=== PATIENT | male | born 1960 | race Caucasian/White ===

== ENCOUNTER 2019-10-23 21:21 | Emergency (ER) | payer BC ==
[2019-10-23] MEDS ORDERED: Nitroglycerin 0.4 MG Tab.SL SL PRN (21:31)
[2019-10-23] MEDS ORDERED: Sodium Chloride 0.9% 10 ML Syringe FLUSH PRN (21:31)
[2019-10-23] MEDS ORDERED: Aspirin 81 MG Tab.Chew PO ONE (21:31)
[2019-10-23] MEDS ORDERED: Morphine 4 MG/ML Syringe IVPUSH PRN (21:31)
--- NOTE | 2019-10-23 21:35 | EDM.PDOC ---
ED HPI GENERAL MEDICAL PROBLEM - General Chief Complaint: Chest Pain Stated Complaint: CHEST PAIN,SOB,HB Time Seen by Provider: 10/23/19 21:31 Source of Information: Reports: Patient, RN Notes Reviewed History Limitations: Reports: No Limitations - History of Present Illness INITIAL COMMENTS - FREE TEXT/NARRATIVE: 58-year-old gentleman presents emergency department a complaint of chest pain, he states the chest pain started 2 hours prior he has no cardiac history no tobacco use does have a history of hypertension as well as gastric bypass. He describes the chest pain he is constant rates it 3-4 out of 10 had felt short of breath that has improved was diaphoretic also improved Chest Pain Score (Numeric/FACES): 3 - Related Data Allergies Allergy/AdvReac Type Severity Reaction Status Date / Time No Known Allergies Allergy Verified 11/11/14 22:17 Home Meds: Home Meds Simvastatin [Zocor] 20 mg PO BEDTIME 11/11/14 [History] traZODone 100 mg PO BEDTIME 11/11/14 [History] Losartan Potassium 1 tab PO DAILY 10/23/19 [History] carvediloL [Carvedilol] 1 tab PO BID 10/23/19 [History] metFORMIN HCl [Metformin HCl ER] 1 tab PO BID 10/23/19 [History] Past Medical History Cardiovascular History: Reports: Hypertension Other Respiratory History: cpap Other Hematologic History: IGA deficient Social & Family History - Tobacco Use Smoking Status *Q: Never Smoker - Caffeine Use Caffeine Use: Reports: Coffee - Recreational Drug Use Recreational Drug Use: No ED ROS GENERAL - Review of Systems Review Of Systems: See Below Constitutional: Reports: No Symptoms HEENT: Reports: No Symptoms Respiratory: Reports: Shortness of Breath Cardiovascular: Reports: Chest Pain GI/Abdominal: Reports: No Symptoms : Reports: No Symptoms ED EXAM, GENERAL - Physical Exam Exam: See Below Exam Limited By: No Limitations General Appearance: Alert, WD/WN, No Apparent Distress Respiratory/Chest: No Respiratory Distress, Lungs Clear, Normal Breath Sounds, No Accessory Muscle Use, Chest Non-Tender Cardiovascular: Regular Rate, Rhythm, No Murmur GI/Abdominal: Soft, Non-Tender Extremities: Normal Inspection, No Pedal Edema Course - Vital Signs Last Recorded V/S: Last Vital Signs Temp 97.5 F 10/23/19 21:31 Pulse 77 10/23/19 22:36 Resp 15 10/23/19 22:36 BP 130/76 10/23/19 22:36 Pulse Ox 96 10/23/19 22:36 - Orders/Labs/Meds Orders: Active Orders 24 hr Category Date Time Status Cardiac Monitoring [RC] .As Directed Care 10/23/19 21:31 Active EKG Documentation Completion [RC] ASDIRECTED Care 10/23/19 21:32 Active Peripheral IV Care [RC] . DIRECTED Care 10/23/19 21:32 Active Chest 1V Frontal [CR] Stat Exams 10/23/19 21:32 Taken Morphine Med 10/23/19 21:31 Active 4 mg IVPUSH Q10M PRN Nitroglycerin [Nitrostat] Med 10/23/19 21:31 Active 0.4 mg SL Q5M PRN Sodium Chloride 0.9% [Saline Flush] Med 10/23/19 21:31 Active 10 ml FLUSH ASDIRECTED PRN Peripheral IV Insertion Adult [OM.PC] Stat Oth 10/23/19 21:31 Ordered Saline Lock Insert [OM.PC] Stat Oth 10/23/19 21:31 Ordered EKG 12 Lead [EK] Stat Ther 10/23/19 21:32 Ordered Medication Orders Morphine Sulfate (Morphine) 4 mg IVPUSH Q10M PRN PRN Reason: Chest Pain Stop: 10/24/19 21:31 Nitroglycerin (Nitrostat) 0.4 mg SL Q5M PRN PRN Reason: Chest Pain Stop: 10/24/19 21:32 Last Admin: 10/23/19 21:43 Dose: 0.4 mg Sodium Chloride (Saline Flush) 10 ml FLUSH ASDIRECTED PRN PRN Reason: Keep Vein Open Labs: Laboratory Tests 10/23/19 10/23/19 10/23/19 Range/Units 21:30 21:30 23:28 WBC 8.4 (4.5-11.0) K/uL RBC 4.96 (4.30-5.90) M/uL Hgb 14.8 (12.0-15.0) g/dL Hct 44.1 (40.0-54.0) % MCV 89 (80-98) fL MCH 30 (27-31) pg MCHC 34 (32-36) % Plt Count 331 (150-400) K/uL Neut % (Auto) 51 (36-66) % Lymph % (Auto) 34 (24-44) % [place] % (Auto) 12 H (2-6) % Eos % (Auto) 3 (2-4) % Baso % (Auto) 1 (0-1) % Sodium 138 L (140-148) mmol/L Potassium 4.2 (3.6-5.2) mmol/L Chloride 102 (100-108) mmol/L Carbon Dioxide 27 (21-32) mmol/L Anion Gap 13.2 (5.0-14.0) mmol/L BUN 11 (7-18) mg/dL Creatinine 0.8 (0.8-1.3) mg/dL Est Cr Clr Drug Dosing 97.80 mL/min Estimated GFR (MDRD) > 60 (>60) Glucose 151 H (74-106) mg/dL Calcium 8.8 (8.5-10.1) mg/dL Total Bilirubin 0.4 (0.2-1.0) mg/dL AST 47 H (15-37) U/L ALT 67 (12-78) U/L Alkaline Phosphatase 65 (46-116) U/L Troponin I < 0.017 < 0.017 (0.000-0.056) ng/mL Total Protein 7.4 (6.4-8.2) g/dL Albumin 3.9 (3.4-5.0) g/dL Globulin 3.5 (2.3-3.5) g/dL Albumin/Globulin Ratio 1.1 L (1.2-2.2) Meds: Medications Generic Name Dose Route Start Last Admin Trade Name Freq PRN Reason Stop Dose Admin Morphine Sulfate 4 mg 10/23/19 21:31 Morphine IVPUSH 10/24/19 21:31 Q10M PRN Chest Pain Nitroglycerin 0.4 mg 10/23/19 21:31 10/23/19 21:43 Nitrostat SL 10/24/19 21:32 0.4 mg Q5M PRN Administration Chest Pain Sodium Chloride 10 ml 10/23/19 21:31 Saline Flush FLUSH ASDIRECTED PRN Keep Vein Open Discontinued Medications Generic Name Dose Route Start Last Admin Trade Name Freq PRN Reason Stop Dose Admin Aspirin 324 mg 10/23/19 21:31 10/23/19 21:43 Aspirin PO 10/23/19 21:32 324 mg ONETIME ONE Administration Departure - Departure Time of Disposition: 00:26 Disposition: Home, Self-Care 01 Condition: Fair Clinical Impression: Atypical chest pain Instructions: Nonspecific Chest Pain, Adult Referrals: PCP,None [Primary Care Provider] - Forms: ED Department Discharge Additional Instructions: Please follow-up with your primary care within the next 3 to 5 days for further evaluation discussed the possibility of a stress test call return to the emergency department worsening of symptoms Sepsis Event Note - Focused Exam Vital Signs: Vital Signs Temp Pulse Resp BP BP Pulse Ox 10/23/19 22:36 77 15 130/76 96 10/23/19 22:08 78 22 H 137/84 94 L 10/23/19 21:52 91 15 141/86 H 95 10/23/19 21:43 188/84 H 10/23/19 21:31 97.5 F 82 10 L 188/84 H 96 10/23/19 21:21 97.5 F 82 10 L 188/84 H 96 Date Exam was Performed: 10/24/19 Time Exam was Performed: 00:25 - My Orders Last 24 Hours: My Active Orders 10/23/19 21:31 Cardiac Monitoring [RC] .As Directed Morphine 4 mg IVPUSH Q10M PRN Nitroglycerin [Nitrostat] 0.4 mg SL Q5M PRN Sodium Chloride 0.9% [Saline Flush] 10 ml FLUSH ASDIRECTED PRN Peripheral IV Insertion Adult [OM.PC] Stat Saline Lock Insert [OM.PC] Stat 10/23/19 21:32 EKG Documentation Completion [RC] ASDIRECTED Peripheral IV Care [RC] . DIRECTED Chest 1V Frontal [CR] Stat EKG 12 Lead [EK] Stat - Assessment/Plan Last 24 Hours: My Active Orders 10/23/19 21:31 Cardiac Monitoring [RC] .As Directed Morphine 4 mg IVPUSH Q10M PRN Nitroglycerin [Nitrostat] 0.4 mg SL Q5M PRN Sodium Chloride 0.9% [Saline Flush] 10 ml FLUSH ASDIRECTED PRN Peripheral IV Insertion Adult [OM.PC] Stat Saline Lock Insert [OM.PC] Stat 10/23/19 21:32 EKG Documentation Completion [RC] ASDIRECTED Peripheral IV Care [RC] . DIRECTED Chest 1V Frontal [CR] Stat EKG 12 Lead [EK] Stat Plan: Assessment Acuity = acute Site and laterality = atypical chest pain Etiology = unknown Manifestations = none Location of injury = Home Lab values = CBC, CMP unremarkable troponin was negative x2 chest x-ray does show an opacity in the left lower lobe consistent with a granuloma he has heard of this before no old films are available here Plan I did review lab work chest x-ray with him he is going to follow-up with his primary care within the next week and talk about a stress test This note was dictated using [employer] voice recognition software please call with any questions on syntax or grammar.
[2019-10-23 22:37] VITALS: PULSE 77
[2019-10-24 00:26] VITALS: BP 144/85
--- NOTE | 2019-10-24 09:39 | CR ---
CHEST: Portable 10/23/2019 CLINICAL HISTORY:Chest pain COMPARISON:None FINDINGS: Heart size is upper limits of normal. Pulmonary vascularity is normal. There are 2 small nodular densities in the right mid and lower lung. There are well demarcated. The larger in the perihilar region measures 6 mm in maximum dimension. This is likely granulomatous but endocrinology cannot be ascertained without prior images. No infiltrates are seen. There are no pleural effusions Impression: No acute cardiopulmonary process Mid and lower right lung nodules are likely benign but comparison with prior studies is recommended. If there are no prior studies available short-term follow-up chest x-ray in 4-[address] should be considered.
== END 2019-10-24 00:42 | disposition home or self-care (01) ==
LOC: JP.ED 21:21
DX: R07.89 Other chest pain (principal); I10 Essential (primary) hypertension; Z79.899 Other long term (current) drug therapy; Z79.84 Long term (current) use of oral hypoglycemic drugs
CPT/HCPCS: 36415; 71045; 80053; 84484; 85025; 93005; 99285; A9270

== ENCOUNTER 2020-09-28 18:06 | Emergency (ER) | payer BC ==
--- NOTE | 2020-09-28 18:49 | EDM.PDOC ---
ED HPI GENERAL MEDICAL PROBLEM - General Chief Complaint: General Stated Complaint: DIZZY, HEADACH Time Seen by Provider: 09/28/20 18:47 Source of Information: Reports: Patient History Limitations: Reports: No Limitations - History of Present Illness INITIAL COMMENTS - FREE TEXT/NARRATIVE: pt has been having headaches , lite headed and a near syncopal episode. He has taken his meds as usual. Onset: Today Duration: Hour(s): Location: Reports: Head, Generalized Associated Symptoms: Reports: Headaches, Syncope, Other (pt has a near syncopal episode. ) headache Pain Score (Numeric/FACES): 5 - Related Data Allergies Allergy/AdvReac Type Severity Reaction Status Date / Time No Known Allergies Allergy Verified 09/30/20 10:35 Home Meds: Home Meds Simvastatin [Zocor] 20 mg PO BEDTIME 11/11/14 [History] traZODone 100 mg PO BEDTIME 11/11/14 [History] Losartan Potassium 50 mg PO DAILY 10/23/19 [History] carvediloL [Carvedilol] 1 tab PO BID 10/23/19 [History] metFORMIN HCl [Metformin HCl ER] 1 tab PO BID 10/23/19 [History] ClonazePAM [KlonoPIN] 0.5 mg PO BID PRN 09/30/20 [History] FLUoxetine HCl [Fluoxetine] 20 mg PO DAILY 09/30/20 [History] Fenofibrate,Micronized [Fenofibrate] 200 mg PO DAILY 09/30/20 [History] Losartan Potassium [Cozaar] 50 mg PO 1600 09/30/20 [History] Past Medical History HEENT History: Reports: Impaired Vision Cardiovascular History: Reports: High Cholesterol, Hypertension Respiratory History: Reports: Sleep Apnea Other Respiratory History: cpap Gastrointestinal History: Reports: GERD Psychiatric History: Reports: Anxiety, Depression Endocrine/Metabolic History: Reports: Diabetes, Type II Other Hematologic History: IGA deficient - Infectious Disease History Infectious Disease History: Reports: Measles - Past Surgical History HEENT Surgical History: Reports: Other (See Below) Other HEENT Surgeries/Procedures: vocal polyp removed 2002 GI Surgical History: Reports: Bariatric Procedure, Colonoscopy, Hernia, Inguinal Musculoskeletal Surgical History: Reports: Arthroscopic Knee, Knee Replacement Social & Family History - Family History Family Medical History: No Pertinent Family History - Tobacco Use Tobacco Use Status *Q: Never Tobacco User Second Hand Smoke Exposure: No - Caffeine Use Caffeine Use: Reports: Coffee - Alcohol Use Days Per Week of Alcohol Use: 2 Number of Drinks Per Day: 3 Total Drinks Per Week: 6 - Recreational Drug Use Recreational Drug Use: No ED ROS GENERAL - Review of Systems Review Of Systems: See Below Constitutional: Reports: Other ( dizziness. ) HEENT: Reports: No Symptoms Respiratory: Reports: No Symptoms Cardiovascular: Reports: Syncope, Other (pt had a near syncopal episode) Endocrine: Reports: No Symptoms GI/Abdominal: Reports: No Symptoms : Reports: No Symptoms Musculoskeletal: Reports: No Symptoms Skin: Reports: No Symptoms Neurological: Reports: Dizziness, Syncope, Other (ppt hada near syncopal episode. ) Psychiatric: Reports: Anxiety ED EXAM, GENERAL - Physical Exam Exam: See Below Exam Limited By: No Limitations General Appearance: Alert, No Apparent Distress, Anxious, Other (pupils are equal and reactive. He is having a headache and he did hae a near syncopal episode. ) Ears: Normal TMs Nose: Normal Inspection Throat/Mouth: Normal Inspection Head: Atraumatic Neck: Normal Inspection Respiratory/Chest: No Respiratory Distress Cardiovascular: Regular Rate, Rhythm GI/Abdominal: Soft, Non-Tender (Male) Exam: Deferred Rectal (Males) Exam: Deferred Back Exam: Normal Inspection Extremities: Normal Inspection Neurological: Alert, Oriented, Normal Cognition Psychiatric: Anxious Course - Vital Signs Last Recorded V/S: Last Vital Signs Temp 36.8 C 09/28/20 18:33 Pulse 72 09/28/20 21:29 Resp 16 09/28/20 21:10 BP 175/96 H 09/28/20 21:37 Pulse Ox 96 09/28/20 21:10 Orthostatic Blood Pressure [ 183/90 Standing] Orthostatic Blood Pressure [ 179/100 Sitting] Orthostatic Blood Pressure [ 171/93 Supine] - Orders/Labs/Meds Labs: Laboratory Tests 09/28/20 09/28/20 09/28/20 Range/Units 18:50 18:50 19:26 WBC 7.5 (4.5-11.0) K/uL RBC 4.73 (4.30-5.90) M/uL Hgb 14.0 (12.0-15.0) g/dL Hct 42.8 (40.0-54.0) % MCV 91 (80-98) fL MCH 30 (27-31) pg MCHC 33 (32-36) % Plt Count 328 (150-400) K/uL Neut % (Auto) 62 (36-66) % Lymph % (Auto) 24 (24-44) % [place] % (Auto) 11 H (2-6) % Eos % (Auto) 2 (2-4) % Baso % (Auto) 1 (0-1) % Sodium 140 (140-148) mmol/L Potassium 4.0 (3.6-5.2) mmol/L Chloride 100 (100-108) mmol/L Carbon Dioxide 26 (21-32) mmol/L Anion Gap 14.0 (5.0-14.0) mmol/L BUN 14 (7-18) mg/dL Creatinine 0.9 (0.8-1.3) mg/dL Est Cr Clr Drug Dosing 87.28 mL/min Estimated GFR (MDRD) > 60 (>60) Glucose 144 H (74-106) mg/dL Calcium 9.2 (8.5-10.1) mg/dL Total Bilirubin 0.9 D (0.2-1.0) mg/dL AST 25 (15-37) U/L ALT 37 (12-78) U/L Alkaline Phosphatase 44 L (46-116) U/L Total Protein 6.8 (6.4-8.2) g/dL Albumin 3.9 (3.4-5.0) g/dL Globulin 2.9 (2.3-3.5) g/dL Albumin/Globulin Ratio 1.3 (1.2-2.2) Urine Color Yellow (YELLOW) Urine Appearance Clear (CLEAR) Urine pH 7.5 (5.0-8.0) Ur Specific [place] 1.015 (1.008-1.030) Urine Protein Negative (NEGATIVE) mg/dL Urine Glucose (UA) Negative (NEGATIVE) mg/dL Urine Ketones Negative (NEGATIVE) mg/dL Urine Occult Blood Negative (NEGATIVE) Urine Nitrite Negative (NEGATIVE) Urine Bilirubin Negative (NEGATIVE) Urine Urobilinogen 0.2 (0.2-1.0) EU/dL Ur Leukocyte Esterase Negative (NEGATIVE) Urine RBC Not seen (0-5) Urine WBC 0-5 (0-5) Ur Epithelial Cells Not seen Amorphous Sediment Not seen Urine Bacteria Not seen Urine Mucus Not seen Meds: Medications Discontinued Medications Generic Name Dose Route Start Last Admin Trade Name Randall PRN Reason Stop Dose Admin Labetalol HCl 20 mg 09/28/20 20:09 09/28/20 20:28 Labetalol 20 Mg/4 Ml Syringe IVPUSH 09/28/20 20:10 20 mg NOW ONE Administration Protocol Labetalol HCl 20 mg 09/28/20 20:58 09/28/20 21:07 Labetalol 20 Mg/4 Ml Syringe IVPUSH 09/28/20 20:59 20 mg NOW ONE Administration Protocol Losartan Potassium 25 mg 09/28/20 19:25 09/28/20 19:34 Losartan 50 Mg Tab PO 09/28/20 19:26 25 mg ONETIME ONE Administration Losartan Potassium 25 mg 09/28/20 21:24 09/28/20 21:37 Losartan 50 Mg Tab PO 09/28/20 21:25 25 mg ONETIME ONE Administration Losartan Potassium 100 mg 09/28/20 22:03 Losartan 50 Mg Tab PO 09/28/20 22:04 ONETIME ONE - Re-Assessments/Exams Free Text/Narrative Re-Assessment/Exam: 09/28/20 19:41 ekg shows no acute findings. He is in a sinus rhythm. rateis 82 normal sinus rhythm. Labs look good. His bp continues to be elevated will add another 25 mg of cozaar at this time. Departure - Departure Time of Disposition: 21:59 Disposition: Home, Self-Care 01 Condition: Fair Clinical Impression: Hypertension, Syncope - Discharge Information Referrals: Trey Nice, [facility] [Primary Care Provider] - Forms: ED Department Discharge Care Plan Goals: increase cozaar to 100mg every morning and 50 mg every evening. Continue other meds. pt is out of his meds will send losarten 100mg home with the pt to take early am. Sepsis Event Note (ED) - Evaluation Sepsis Screening Result: No Definite Risk
[2020-09-28] MEDS ORDERED: Losartan 50 MG Tab PO ONE ×3 (19:25→22:03)
[2020-09-28] MEDS ORDERED: Labetalol 20 MG/4 ML Syringe IVPUSH ONE ×2 (20:09→20:58)
--- NOTE | 2020-09-28 20:45 | CRLCT ---
INDICATION: Syncope, severe headache. COMPARISON: None. TECHNIQUE: CT of the head without IV contrast. Coronal and sagittal reconstructions are provided. FINDINGS: No intracranial hemorrhage, mass effect, or evidence of acute infarct. No midline shift. No abnormal extra-axial fluid collections. Normal caliber ventricular system. Orbits and extraocular muscles are symmetric. The paranasal sinuses and mastoid air cells are clear. No acute fracture. Soft tissues are unremarkable. IMPRESSION: : No acute intracranial findings. Please note that all CT scans at this facility use dose modulation, iterative reconstruction, and/or weight-based dosing when appropriate to reduce radiation dose to as low as reasonably achievable. Dictated by Krista King MD @ 09/28/2020 8:43:[address] Krista King @ Sep 28 2020 8:43PM
[2020-09-28 21:34] VITALS: BP 175/96; PULSE 72
== END 2020-09-28 22:12 | disposition home or self-care (01) ==
LOC: JP.ED 18:06
DX: R55 Syncope and collapse (principal); E78.00 Pure hypercholesterolemia, unspecified; I10 Essential (primary) hypertension; K21.9 Gastro-esophageal reflux disease without esophagitis; E11.9 Type 2 diabetes mellitus without complications; Z79.899 Other long term (current) drug therapy; Z79.84 Long term (current) use of oral hypoglycemic drugs
CPT/HCPCS: 36415; 70450; 80053; 81001; 85025; 93005; 96374; 96376; 99284-25; A9270-GY; J3490

== ENCOUNTER 2020-09-30 10:26 | Emergency (ER) | payer BC ==
[2020-09-30 10:48] VITALS: BP 154/89; PULSE 79
--- NOTE | 2020-09-30 11:34 | EDM.PDOC ---
ED HPI GENERAL MEDICAL PROBLEM - General Chief Complaint: General Stated Complaint: MEDICAL [facility] Time Seen by Provider: 09/30/20 10:45 Source of Information: Reports: Patient, EMS History Limitations: Reports: No Limitations - History of Present Illness INITIAL COMMENTS - FREE TEXT/NARRATIVE: 59-year-old male who was just felt "off" for the last 3 or 4 days, has been running higher blood pressures than usual. He has also had a headache. He came into the emergency room 2 days ago and had a very complete work-up including a head CT and was discharged with an increased dose of hypertensive medication. He was supposed to have a recheck at the clinic, his phone during this morning and it was the clinic and he thought that they were calling with an appointment call but they asked how he was doing and he said his blood pressure was 180/110 this morning and he was still having a headache so they told him to call the ambulance. He arrives with a minimal headache, blood pressure 165/89, no chest pain or shortness of breath. Onset: Unknown/Unsure Associated Symptoms: Reports: Malaise. Denies: Confusion (Well), Chest Pain, Nausea/Vomiting, Weakness denies Pain Score (Numeric/FACES): 0 - Related Data Allergies Allergy/AdvReac Type Severity Reaction Status Date / Time No Known Allergies Allergy Verified 09/30/20 10:35 Home Meds: Home Meds Simvastatin [Zocor] 20 mg PO BEDTIME 11/11/14 [History] traZODone 100 mg PO BEDTIME 11/11/14 [History] Losartan Potassium 50 mg PO DAILY 10/23/19 [History] carvediloL [Carvedilol] 1 tab PO BID 10/23/19 [History] metFORMIN HCl [Metformin HCl ER] 1 tab PO BID 10/23/19 [History] ClonazePAM [KlonoPIN] 0.5 mg PO BID PRN 09/30/20 [History] FLUoxetine HCl [Fluoxetine] 20 mg PO DAILY 09/30/20 [History] Fenofibrate,Micronized [Fenofibrate] 200 mg PO DAILY 09/30/20 [History] Losartan Potassium [Cozaar] 50 mg PO 1600 09/30/20 [History] Past Medical History HEENT History: Reports: Impaired Vision Cardiovascular History: Reports: High Cholesterol, Hypertension Respiratory History: Reports: Sleep Apnea Other Respiratory History: cpap Gastrointestinal History: Reports: GERD Psychiatric History: Reports: Anxiety, Depression Endocrine/Metabolic History: Reports: Diabetes, Type II Other Hematologic History: IGA deficient - Infectious Disease History Infectious Disease History: Reports: Measles - Past Surgical History HEENT Surgical History: Reports: Other (See Below) Other HEENT Surgeries/Procedures: vocal polyp removed 2002 GI Surgical History: Reports: Bariatric Procedure, Colonoscopy, Hernia, Inguinal Musculoskeletal Surgical History: Reports: Arthroscopic Knee, Knee Replacement Social & Family History - Family History Family Medical History: No Pertinent Family History - Tobacco Use Tobacco Use Status *Q: Never Tobacco User Second Hand Smoke Exposure: No - Caffeine Use Caffeine Use: Reports: Coffee - Alcohol Use Days Per Week of Alcohol Use: 2 Number of Drinks Per Day: 3 Total Drinks Per Week: 6 - Recreational Drug Use Recreational Drug Use: No ED ROS GENERAL - Review of Systems Review Of Systems: See Below Constitutional: Denies: Fever, Chills HEENT: Denies: Vision Change Respiratory: Denies: Shortness of Breath Cardiovascular: Denies: Chest Pain Endocrine: Reports: Fatigue GI/Abdominal: Denies: Abdominal Pain, Nausea, Vomiting : Reports: No Symptoms Neurological: Reports: Headache, Weakness Psychiatric: Reports: Anxiety ED EXAM, GENERAL - Physical Exam Exam: See Below Exam Limited By: No Limitations General Appearance: Alert, No Apparent Distress Eye Exam: Bilateral Eye: Normal Inspection Head: Atraumatic Respiratory/Chest: No Respiratory Distress, Lungs Clear Cardiovascular: Regular Rate, Rhythm. No: Extra Beats GI/Abdominal: Soft, Non-Tender Extremities: No Pedal Edema Neurological: Alert, Oriented, No Motor/Sensory Deficits Psychiatric: Normal Affect, Normal Mood Skin Exam: Warm, Dry Course - Vital Signs Last Recorded V/S: Last Vital Signs Temp 97.9 F 09/30/20 10:47 Pulse 79 09/30/20 10:47 Resp 16 09/30/20 10:47 BP 154/89 H 09/30/20 10:47 Pulse Ox 98 09/30/20 10:47 - Re-Assessments/Exams Free Text/Narrative Re-Assessment/Exam: 09/30/20 13:02 When patient arrived his blood pressure was 165/89, within 1/2-hour it had normalized to 154/89. This was without medication or treatment. He had no other symptoms, no headache currently. No additional work-up was necessary at this time but I did make him an appointment with his provider tomorrow morning for blood pressure recheck and encouraged him to continue the medications as prescribed. Departure - Departure Time of Disposition: 11:50 Disposition: Home, Self-Care 01 Clinical Impression: Essential hypertension - Discharge Information Instructions: Hypertension, Adult Referrals: PCP,None [Primary Care Provider] - Forms: ED Department Discharge Care Plan Goals: Recheck with your primary provider, Trey Nice, tomorrow morning and continue your medications as discussed. [place] at the clinic before 9:45 and you will be seen as a work in. Sepsis Event Note (ED) - Evaluation Sepsis Screening Result: No Definite Risk - Focused Exam Vital Signs: Vital Signs Temp Pulse Resp BP Pulse Ox 09/30/20 10:47 97.9 F 79 16 154/89 H 98 09/30/20 10:34 97.9 F 83 16 165/86 H 96
== END 2020-09-30 11:50 | disposition home or self-care (01) ==
LOC: JP.ED 10:26
DX: I10 Essential (primary) hypertension (principal); E78.00 Pure hypercholesterolemia, unspecified; E11.9 Type 2 diabetes mellitus without complications; Z79.84 Long term (current) use of oral hypoglycemic drugs
CPT/HCPCS: 99282; 99284

== ENCOUNTER 2021-04-13 22:42 | Emergency (ER) | payer BC ==
[2021-04-13] MEDS ORDERED: Sodium Chloride 0.9% 10 ML Syringe FLUSH PRN (22:59)
--- NOTE | 2021-04-13 22:59 | EDM.PDOC ---
ED HPI GENERAL MEDICAL PROBLEM - General Chief Complaint: Cardiovascular Problem Stated Complaint: HEART PALPATATIONS Time Seen by Provider: 04/13/21 22:55 Source of Information: Reports: Patient, Old Records, RN History Limitations: Reports: No Limitations - History of Present Illness INITIAL COMMENTS - FREE TEXT/NARRATIVE: 60 yo male with no pHx of afib presents with an irregular and rapid pulse that was present when he awoke from a nap in his recliner. Says he slept only about 45 min and that it was not present when he fell asleep. Has no CP, but does have some MADRID. He drinks 2-3 alcoholic drinks on the weekend mainly, did have a glass of wine tonight. Is a gastric bypass patient and is not supposed to take NSAID's. 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 (see below) (none) - Related Data Allergies Allergy/AdvReac Type Severity Reaction Status Date / Time No Known Allergies Allergy Verified 04/13/21 23:16 Home Meds: Home Meds Simvastatin [Zocor] 20 mg PO BEDTIME 11/11/14 [History] traZODone 100 mg PO BEDTIME 11/11/14 [History] Losartan Potassium 50 mg PO DAILY 10/23/19 [History] carvediloL [Carvedilol] 1 tab PO BID 10/23/19 [History] metFORMIN HCl [Metformin HCl ER] 1 tab PO BID 10/23/19 [History] ClonazePAM [KlonoPIN] 0.5 mg PO BID PRN 09/30/20 [History] FLUoxetine HCl [Fluoxetine] 20 mg PO DAILY 09/30/20 [History] Fenofibrate,Micronized [Fenofibrate] 200 mg PO DAILY 09/30/20 [History] Losartan Potassium [Cozaar] 50 mg PO 1600 09/30/20 [History] Past Medical History HEENT History: Reports: Impaired Vision Cardiovascular History: Reports: High Cholesterol, Hypertension Respiratory History: Reports: Sleep Apnea Other Respiratory History: cpap Gastrointestinal History: Reports: GERD Psychiatric History: Reports: Anxiety, Depression Endocrine/Metabolic History: Reports: Diabetes, Type II Other Hematologic History: IGA deficient - Infectious Disease History Infectious Disease History: Reports: Measles - Past Surgical History HEENT Surgical History: Reports: Other (See Below) Other HEENT Surgeries/Procedures: vocal polyp removed 2002 GI Surgical History: Reports: Bariatric Procedure, Colonoscopy, Hernia, Inguinal Musculoskeletal Surgical History: Reports: Arthroscopic Knee, Knee Replacement Social & Family History - Family History Family Medical History: No Pertinent Family History - Caffeine Use Caffeine Use: Reports: Coffee ED ROS GENERAL - Review of Systems Review Of Systems: See Below Constitutional: Reports: No Symptoms HEENT: Reports: No Symptoms Respiratory: Reports: Shortness of Breath (with exertion) Cardiovascular: Reports: Palpitations GI/Abdominal: Reports: No Symptoms : Reports: No Symptoms Musculoskeletal: Reports: No Symptoms Skin: Reports: No Symptoms Neurological: Reports: No Symptoms Psychiatric: Reports: No Symptoms ED EXAM, GENERAL - Physical Exam Exam: See Below Exam Limited By: No Limitations General Appearance: Alert, WD/WN, No Apparent Distress, Obese Eye Exam: Bilateral Eye: Normal Inspection Ears: Normal External Exam, Normal Canal, Hearing Grossly Normal Ear Exam: Bilateral Ear: Auricle Normal, Canal Normal Nose: Normal Inspection, No Blood Throat/Mouth: Normal Inspection, Normal Lips, Normal Oropharynx, Normal Voice, No Airway Compromise Head: Atraumatic, Normocephalic Neck: Normal Inspection Respiratory/Chest: No Respiratory Distress, Lungs Clear, Normal Breath Sounds, No Accessory Muscle Use Cardiovascular: No Edema, Tachycardia, Irregularly Irregular GI/Abdominal: Soft, Non-Tender, No Distention Back Exam: Normal Inspection Extremities: Normal Inspection, No Pedal Edema Neurological: Alert, Oriented, CN II-XII Intact, Normal Cognition, No Motor/Sensory Deficits Psychiatric: Normal Affect, Normal Mood Skin Exam: Warm, Dry, Intact, Normal Color, No Rash #1 Interpretation EKG Date: 04/13/21 Time: 22:55 Rhythm: A-Fib Rate (Beats/Min): 136 [place]: Normal P-Wave: Absent QRS: Normal ST-T: Normal QT: Normal Comparison: Change From Previous EKG (change from NSR on last EKG) Course - Vital Signs Last Recorded V/S: Last Vital Signs Temp 36.6 C 04/13/21 23:09 Pulse 97 04/13/21 23:40 Resp 18 04/13/21 23:09 BP 109/67 04/13/21 23:40 Pulse Ox 96 04/13/21 23:09 - Orders/Labs/Meds Orders: Active Orders 24 hr Category Date Time Status Cardiac Monitoring [RC] .As Directed Care 04/13/21 22:52 Active Sodium Chloride 0.9% [Saline Flush] Med 04/13/21 22:59 Active 10 ml FLUSH ASDIRECTED PRN Saline Lock Insert [OM.PC] Routine Oth 04/13/21 22:59 Ordered EKG 12 Lead [EK] Routine Ther 04/13/21 22:59 Ordered Medication Orders Sodium Chloride (Sodium Chloride 0.9% 10 Ml Syringe) 10 ml FLUSH ASDIRECTED PRN PRN Reason: Keep Vein Open Last Admin: 04/13/21 23:20 Dose: 10 ml Documented by: ETELVINA Labs: Laboratory Tests 04/13/21 Range/Units 23:07 Sodium 141 (140-148) mmol/L Potassium 4.0 (3.6-5.2) mmol/L Chloride 103 (100-108) mmol/L Carbon Dioxide 23 (21-32) mmol/L Anion Gap 14.6 H (5.0-14.0) mmol/L BUN 16 (7-18) mg/dL Creatinine 0.9 (0.8-1.3) mg/dL Est Cr Clr Drug Dosing 86.19 mL/min Estimated GFR (MDRD) > 60 (>60) Glucose 131 H (74-106) mg/dL Calcium 9.1 (8.5-10.1) mg/dL Troponin I < 0.017 (0.000-0.056) ng/mL TSH, Ultra Sensitive 3.221 (0.358-3.740) uIU/mL Meds: Medications Generic Name Dose Route Start Last Admin Trade Name Freq PRN Reason Stop Dose Admin Sodium Chloride 10 ml 04/13/21 22:59 04/13/21 23:20 Sodium Chloride 0.9% 10 Ml Syringe FLUSH 10 ml ASDIRECTED PRN Administration Keep Vein Open Discontinued Medications Generic Name Dose Route Start Last Admin Trade Name Freq PRN Reason Stop Dose Admin Carvedilol 12.5 mg 04/13/21 23:21 04/13/21 23:40 Carvedilol 12.5 Mg Tab PO 04/13/21 23:22 12.5 mg ONETIME ONE Administration Propofol Confirm 04/13/21 23:33 Propofol 200 Mg/20 Ml Sdv Administered 04/13/21 23:34 Dose 200 mg .ROUTE .[facility] ONE - Re-Assessments/Exams Free Text/Narrative Re-Assessment/Exam: 04/13/21 23:30 anesthesia here to administer propofol anesthesia. Cardioverted with 100J biphasic x 1 with conversion to sinus tach at 102/min. Departure - Departure Time of Disposition: 12:10 Disposition: Home, Self-Care 01 Condition: Fair Clinical Impression: Atrial fibrillation with RVR, Blood sugar increased Referrals: Trey Nice S[employer] EXAMINER [Primary Care Provider] - Forms: ED Department Discharge Additional Instructions: Increase your carvedilol dose to 25 mg every 12 hrs from your current 12.5 mg every 12 hrs. Discuss with your provider JOVANNI their choice for anticoagulation for your due to your increased risk for stroke due to atrial fibrillation. Your doctor may want you to see a director of workforce development. Return if your heart rate becomes fast again like tonight. Discuss possibly increasing your metformin dose with your doctor as well, your blood sugar was mildly elevated tonight at 131. Sepsis Event Note (ED) - Focused Exam Vital Signs: Vital Signs Temp Pulse Pulse Resp BP BP Pulse Ox 04/13/21 23:40 97 109/67 04/13/21 23:09 36.6 C 140 H 18 158/99 H 96 - My Orders Last 24 Hours: My Active Orders 04/13/21 22:52 Cardiac Monitoring [RC] .As Directed 04/13/21 22:59 Sodium Chloride 0.9% [Saline Flush] 10 ml FLUSH ASDIRECTED PRN Saline Lock Insert [OM.PC] Routine EKG 12 Lead [EK] Routine - Assessment/Plan Last 24 Hours: My Active Orders 04/13/21 22:52 Cardiac Monitoring [RC] .As Directed 04/13/21 22:59 Sodium Chloride 0.9% [Saline Flush] 10 ml FLUSH ASDIRECTED PRN Saline Lock Insert [OM.PC] Routine EKG 12 Lead [EK] Routine
[2021-04-13] MEDS ORDERED: Carvedilol 12.5 MG Tab PO ONE (23:21)
[2021-04-13] MEDS ORDERED: Propofol 200 MG/20 ML SDV ONE (23:33)
[2021-04-13 23:40] VITALS: BP 109/67; PULSE 97
== END 2021-04-14 00:20 | disposition home or self-care (01) ==
LOC: JP.ED 22:42
DX: I48.91 Unspecified atrial fibrillation (principal); E11.65 Type 2 diabetes mellitus with hyperglycemia; E78.00 Pure hypercholesterolemia, unspecified; I10 Essential (primary) hypertension; K21.9 Gastro-esophageal reflux disease without esophagitis; Z79.899 Other long term (current) drug therapy; Z79.84 Long term (current) use of oral hypoglycemic drugs
CPT/HCPCS: 36415; 80048; 84443; 84484; 92960; 93005; 99285; A9270; J2704

== ENCOUNTER 2022-01-08 08:23 | Emergency (ER) | payer BC ==
[2022-01-08 08:38] VITALS: BP 169/96; PULSE 78
== END 2022-01-08 09:24 | disposition home or self-care (01) ==
LOC: JP.ED 08:23
DX: S80.822A Blister (nonthermal), left lower leg, initial encounter (principal); L08.9 Local infection of the skin and subcutaneous tissue, unspecified; I10 Essential (primary) hypertension; E11.9 Type 2 diabetes mellitus without complications; Z79.899 Other long term (current) drug therapy; Z79.84 Long term (current) use of oral hypoglycemic drugs; Z79.01 Long term (current) use of anticoagulants
CPT/HCPCS: 99281; 99283

== ENCOUNTER 2022-11-15 23:17 | Emergency (ER) | payer BC ==
[2022-11-16 00:34] LABS: BASOPHILS ABSOLUTE AUTO 0.04 K/uL (0.00-0.10); BASOPHILS PERCENT AUTO 0.5 % (0.1-1.3); EOSINOPHILS ABSOLUTE AUTO 0.18 K/uL (0.00-0.40); EOSINOPHILS PERCENT AUTO 2.3 % (0.0-5.4); HEMATOCRIT 39.6 % (38.4-49.7); HEMOGLOBIN 13.8 g/dL (12.9-16.9); IMMATURE GRAN ABSOLUTE AUTO 0.03 K/uL (0.00-0.23); IMMATURE GRAN PERCENT AUTO 0.4 % (0.0-0.7); LYMPHOCYTES ABSOLUTE AUTO 2.22 K/uL (0.8-3.3); LYMPHOCYTES PERCENT AUTO 28.6 % (11.4-47.7); MEAN CORPUSCULAR HEMOGLOBIN 31.5 pg (31.6-35.5); MEAN CORPUSCULAR HGB CONC 34.8 g/dL (31.6-35.5); MEAN CORPUSCULAR VOLUME 90.4 fL (81.4-99.0); MONOCYTES ABSOLUTE AUTO 0.84 K/uL (0.20-0.90); MONOCYTES PERCENT AUTO 10.8 % (3.3-12.6); NEUTROPHILS ABSOLUTE AUTO 4.46 K/uL (1.0-7.6); NEUTROPHILS PERCENT AUTO 57.4 % (40.0-78.1); PLATELET COUNT,PLT 262 K/uL (130-375); RED BLOOD CELL COUNT 4.38 M/uL (4.14-5.76); WHITE BLOOD CELL COUNT,WBC 7.8 K/uL (3.2-11.0)
[2022-11-16 01:04] LABS: ANION GAP 10.7 mmol/L (5.0-14.0); CREATININE 0.9 mg/dL (0.8-1.3); EST CRCL DRUG DOSING (CG) 86.74 mL/min; POTASSIUM,K 3.7 mmol/L (3.6-5.2); TROPONIN I HIGH SENSITIVITY 11.9 pg/mL (<=60.3); TSH ULTRASENSITIVE 3.344 uIU/mL (0.358-3.740)
[2022-11-16 01:29] VITALS: BP 116/73; PULSE 83
== END 2022-11-16 01:36 | disposition home or self-care (01) ==
LOC: JP.ED 23:17
DX: R00.2 Palpitations (principal); I48.91 Unspecified atrial fibrillation; E78.00 Pure hypercholesterolemia, unspecified; I10 Essential (primary) hypertension; K21.9 Gastro-esophageal reflux disease without esophagitis; E11.9 Type 2 diabetes mellitus without complications; Z79.01 Long term (current) use of anticoagulants; Z79.899 Other long term (current) drug therapy
CPT/HCPCS: 36415; 80048; 84443; 84484; 85025; 93005; 99285